=== PATIENT | female | born 1960 | race African-American/Black ===

== ENCOUNTER 2017-11-22 11:54 | Emergency (ER) | payer MEDICAID, OTHER, SELFPAY ==
--- NOTE | 2017-11-22 13:23 | RAD ---
THREE VIEWS RIGHT SHOULDER: COMPARISON: None. History Right arm pain that began yesterday at noon. FINDINGS: Three views of the right shoulder show no evidence of acute fracture or dislocation. No degenerative changes are seen. The visualized right thorax is unremarkable. IMPRESSION: Unremarkable exam. POS: RAZA
--- NOTE | 2017-11-22 13:25 | RAD ---
TWO VIEWS OF THE RIGHT HUMERUS: COMPARISON: None. HISTORY: Right arm pain that began at noon yesterday. FINDINGS: Two views of the right humerus show no evidence of acute fracture or dislocation. No degenerative ch anges are seen. No soft tissue swelling is present. IMPRESSION: Unremarkable exam. POS: VAL
== END 2017-11-22 13:23 | disposition home or self-care (01) ==
LOC: SCSER 11:54
DX: M79.621 Pain in right upper arm (principal); K21.9 Gastro-esophageal reflux disease without esophagitis; E78.5 Hyperlipidemia, unspecified; J44.9 Chronic obstructive pulmonary disease, unspecified; I12.9 Hypertensive chronic kidney disease with stage 1 through stage 4 chronic kidney disease, or unspecified chronic kidney disease; N18.2 Chronic kidney disease, stage 2 (mild); F41.9 Anxiety disorder, unspecified; Z86.73 Personal history of transient ischemic attack (TIA), and cerebral infarction without residual deficits; Z79.899 Other long term (current) drug therapy
CPT/HCPCS: 93005

== ENCOUNTER 2018-05-12 11:51 | Outpatient (CLI) | payer OTHER ==
--- NOTE | 2018-05-12 14:36 | ULT ---
LEFT LOWER EXTREMITY VENOUS DUPLEX ULTRASOUND INCLUDING COLOR AND SPECTRAL DOPPLER IMAGING: HISTORY: Left posterior ankle pain and swelling with localized edema for several days. TECHNIQUE: Exam performed from groin to ankle, including visualized greater saphenous, common femoral, superfici al femoral, profunda femoral, popliteal, trifurcation, and posterior tibial vein regions. FINDINGS: There is phasic flow at all levels with normal compressibility and normal augmentation. No intralumi nal thrombus. In the region of the posterior ankle, at the area of pain, there is noted to be abnorm al thickening of the Achilles tendon, evidence for tendinopathy, with what may be some minimal superf icial swelling or edema overlying this. No evidence for alexi disruption of the Achilles tendon in t he region evaluated with ultrasound. IMPRESSION: 1. No evidence for deep venous thrombosis. 2. In the region of pain, in the posterior ankle, there is abnormal thickening of the Achilles tendo n, evidence for tendinopathy, but without an overt disruption of the visualized Achilles tendon. If this area of pain persists or worsens, a follow-up ankle MRI study might well further evaluate this. POS: VAL
== END 2018-05-12 11:52 | disposition home or self-care (01) ==
LOC: ULT 11:51
PROVIDERS: ATTEND Nurse Practitioner Family
DX: R60.0 Localized edema (principal); M67.874 Other specified disorders of tendon, left ankle and foot

== ENCOUNTER 2020-10-27 11:58 | Outpatient (CLI) | payer MEDICARE, MEDICAID | END 2020-10-27 11:59 | disposition home or self-care (01) | LOC: BICMAMMO 11:58 | PROVIDERS: ATTEND Physician Assistant | DX: Z12.31 Encounter for screening mammogram for malignant neoplasm of breast (principal); Z80.3 Family history of malignant neoplasm of breast; Z91.89 Other specified personal risk factors, not elsewhere classified | CPT/HCPCS: 77063; 77067 ==

== ENCOUNTER 2020-12-06 11:55 | Outpatient (CLI) | payer MEDICARE, MEDICAID ==
[2020-12-06 12:48] LABS: #Basophils 0.1 10x3/uL (0.0-0.2); #Eosinphils 0.1 10x3/uL (0.0-0.5); #Monocytes 1.1 10x3/uL (0.0-1.1); #Neutrophils 7.3 10x3/uL (1.5-8.4); %Basophils 0.4 % (0.0-2.0); %Eosinophils 0.7 % (0.0-6.0); %Lymphocytes 29.6 % (18.0-47.0); %Monocytes 9.2 % (0.0-10.0); %Neutrophils 59.8 % (40.0-75.0); Mean Corpuscular HGB CONC 32.1 g/dL (32.0-36.0); Mean Platelet Volume 10.5 fl (7.4-10.4); Platelet Count 268 10x3/uL (150-450); RBC Distribution Width 15.8 % (11.5-14.5); Red Blood Cell (RBC) Count 5.19 10x6/uL (3.90-5.03); White Blood Cell (WBC) Count 12.1 10x3/uL (3.5-10.5)
[2020-12-06 13:09] LABS: ALT (SGPT) 12 U/L (8-55); AST (SGOT) 17 U/L (5-34); Albumin 4.4 g/dL (3.5-5.0); Alkaline Phosphatase 78 U/L (40-110); Anion Gap 16 mmol/L (10-20); BUN (Urea Nitrogen) 23 mg/dL (9.8-20.1); Bilirubin, Total 0.4 mg/dL (0.2-1.2); Calc. Creatinine Clearance 0 mL/min (70-130); Carbon Dioxide 25 mmol/L (22-29); Chloride 106 mmol/L (98-107); Globulin 3.2 g/dL (2.4-3.5); Glucose 88 mg/dL (70-105); Potassium 4.8 mmol/L (3.5-5.1); Protein, Total 7.6 g/dL (6.0-8.3); Sodium 142 mmol/L (136-145)
[2020-12-06 16:52] LABS: SARS-CoV-2 NAA Rapid Test Not Detected (NotDetected)
== END 2020-12-06 11:56 | disposition home or self-care (01) ==
LOC: LABBT 11:55
PROVIDERS: ATTEND Internal Medicine Cardiovascular Disease
DX: Z01.812 Encounter for preprocedural laboratory examination (principal); I20.0 Unstable angina; Z20.822 Contact with and (suspected) exposure to COVID-19
CPT/HCPCS: 80053; 85025; U0002

== ENCOUNTER → 2020-12-07 | Day surgery (SDC) | payer MEDICARE, MEDICAID ==
[2020-12-06 12:19] VITALS: BMI 19.5
[~2020-12-07] MED LIST: Famotidine/PF 20 mg/2ml Vial ONE; Fentanyl 100 MCG/2 ML VIAL ONE; Midazolam HCl 2 mg/2 ml Vial ONE
== END ==
LOC: CCL 05:55
PROVIDERS: ATTEND Internal Medicine Cardiovascular Disease
PROC: 4A023N7 Measurement of Cardiac Sampling and Pressure, Left Heart, Percutaneous Approach (ICD-10-PCS; principal; 2020-12-07)
PROC: B2111ZZ Fluoroscopy of Multiple Coronary Arteries using Low Osmolar Contrast (ICD-10-PCS; 2020-12-07)
DX: I20.0 Unstable angina (principal); Q24.8 Other specified congenital malformations of heart; I73.9 Peripheral vascular disease, unspecified; K21.9 Gastro-esophageal reflux disease without esophagitis; E78.00 Pure hypercholesterolemia, unspecified; I12.9 Hypertensive chronic kidney disease with stage 1 through stage 4 chronic kidney disease, or unspecified chronic kidney disease; N18.2 Chronic kidney disease, stage 2 (mild); F17.210 Nicotine dependence, cigarettes, uncomplicated; Z79.82 Long term (current) use of aspirin; Z79.899 Other long term (current) drug therapy; Z88.0 Allergy status to penicillin; Z88.5 Allergy status to narcotic agent
CPT/HCPCS: 93458; 99152; 99153; J2250; J3010; S0028

== ENCOUNTER 2021-09-12 08:12 | Outpatient (CLI) | payer MEDICARE, MEDICAID | END 2021-09-12 08:13 | disposition home or self-care (01) | LOC: TBSIIMAG 08:12 | PROVIDERS: ATTEND Physician Assistant | DX: M47.22 Other spondylosis with radiculopathy, cervical region (principal); M47.813 Spondylosis without myelopathy or radiculopathy, cervicothoracic region | CPT/HCPCS: 72141 ==

== ENCOUNTER 2021-10-05 09:38 | Outpatient (CLI) | payer MEDICARE, MEDICAID | END 2021-10-05 09:39 | disposition home or self-care (01) | LOC: BICMAMMO 09:38 | PROVIDERS: ATTEND Physician Assistant | DX: N63.10 Unspecified lump in the right breast, unspecified quadrant (principal); N63.20 Unspecified lump in the left breast, unspecified quadrant; N60.42 Mammary duct ectasia of left breast; N60.41 Mammary duct ectasia of right breast | CPT/HCPCS: 76642 ×2; 77066; G0279 ==

== ENCOUNTER 2022-09-27 08:34 | Outpatient (CLI) | payer MEDICARE, MEDICAID ==
[2022-09-27] MEDS ORDERED: Iopamidol 370 76% 100 ML VIAL ONE (11:11)
== END 2022-09-27 08:35 | disposition home or self-care (01) ==
LOC: CT 08:34
PROVIDERS: ATTEND Internal Medicine Cardiovascular Disease
DX: I73.9 Peripheral vascular disease, unspecified (principal); I77.9 Disorder of arteries and arterioles, unspecified
CPT/HCPCS: 75635; 82565

== ENCOUNTER 2022-12-03 11:27 | Emergency (ER) | payer MEDICARE, MEDICAID ==
[2022-12-03 12:26] LABS: #Eosinphils 0.2 thou/uL (0.0-0.7); #Monocytes 1.1 thou/uL (0.11-0.59); #Neutrophils 3.7 thou/uL (1.40-6.50); %Basophils 0.5 % (0.0-1.0); %Eosinophils 2.9 % (0.0-10.0); %Lymphocytes 38.4 % (21.0-51.0); %Monocytes 12.9 % (0.0-10.0); %Neutrophils 44.9 % (42.0-75.0); Hematocrit 35.3 % (36.0-47.0); Hemoglobin 11.2 g/dL (12.0-16.0); Mean Corpuscular HGB CONC 31.7 g/dL (32.0-36.0); Mean Corpuscular Volume 88.3 fl (78.0-98.0); Mean Platelet Volume 11.3 fL (7.4-10.4); Platelet Count 187 10x3/uL (130-400); RBC Distribution Width 13.9 % (11.5-14.5); White Blood Cell (WBC) Count 8.2 10x3/uL (4.8-10.8)
[2022-12-03 12:48] LABS: ALT (SGPT) 14 U/L (8-55); AST (SGOT) 17 U/L (5-34); Albumin 4.7 g/dL (3.4-4.8); Alkaline Phosphatase 62 U/L (40-110); Anion Gap 17 mmol/L (10-20); BUN (Urea Nitrogen) 21 mg/dL (9.8-20.1); Bilirubin, Total 0.7 mg/dL (0.2-1.2); Calc. Creatinine Clearance 0 mL/min (70-130); Carbon Dioxide 25 mmol/L (23-31); Chloride 104 mmol/L (98-107); Estimated GFR 36; Globulin 3.3 g/dL (2.4-3.5); Glucose 91 mg/dL (80-115); Potassium 4.6 mmol/L (3.5-5.1); Sodium 141 mmol/L (136-145)
[2022-12-03 12:58] LABS: Troponin I 0.012 ng/mL (< 0.028)
[2022-12-03 14:29] LABS: Troponin I Less than 0.010 ng/mL (< 0.028)
== END 2022-12-03 14:44 | disposition home or self-care (01) ==
LOC: ERS 11:27
DX: R07.89 Other chest pain (principal); K21.9 Gastro-esophageal reflux disease without esophagitis; I10 Essential (primary) hypertension; J44.9 Chronic obstructive pulmonary disease, unspecified; Z87.891 Personal history of nicotine dependence; Z79.899 Other long term (current) drug therapy; Z79.82 Long term (current) use of aspirin
CPT/HCPCS: 36415; 71045; 80053; 83880; 84484; 85025; 93005